=== PATIENT | male | born 1980 | race Caucasian/White ===

== ENCOUNTER → 2021-08-06 | Outpatient (CLI) | payer BC ==
[~2021-08-06] MED LIST: ERYTHROMYCIN OP1 GM EYERT
[2021-08-06 14:02] LABS: HEMOGLOBIN 15.9 gm/dl (14.0-17.5); RED BLOOD COUNT 5.32 M/UL (4.20-5.50); WHITE BLOOD COUNT 6.8 K/UL (4.5-11.0)
[2021-08-06 14:32] LABS: BUN/CREATININE RATIO 20 (0-10)
[2021-08-07 06:11] LABS: HBSAG SCREEN Negative (Negative); HCV AB <0.1 (0.0-0.9); HEP B CORE AB, TOT Negative (Negative)
[2021-08-07 07:13] LABS: HCV ANTIBODY <0.1 (0.0-0.9); HIV AB/P24 AG SCREEN Non Reactive (Non Reactive)
[2021-08-07 10:15] LABS: RHEUMATOID ARTHRITIS FACTOR <10.0 IU/mL (<14.0)
[2021-08-10 09:10] LABS: ALT (SGPT) P5P 93 IU/L (0-55); APOLIPOPROTEIN A-1 119 mg/dL (101-178); AST (SGOT) P5P 48 IU/L (0-40); BILIRUBIN, TOTAL 0.3 mg/dL (0.0-1.2); CHOLESTEROL, TOTAL 227 mg/dL (100-199); GGT 53 IU/L (0-65); GLUCOSE, SERUM 107 mg/dL (65-99); HAPTOGLOBIN 108 mg/dL (23-355); TRIGLYCERIDES 198 mg/dL (0-149)
== END ==
LOC: LAB 13:09
PROVIDERS: Family Medicine
DX: M19.90 Unspecified osteoarthritis, unspecified site (principal); F10.10 Alcohol abuse, uncomplicated; M54.50 Low back pain, unspecified
CPT/HCPCS: 36415; 80053; 80061; 82172; 82247; 82465; 82550; 82947; 82977; 83010; 83540; 83550; 84207; 84425; 84450; 84460; 84478; 84550; 85025; 85610; 85652; 86200; 86431; 86704; 86706; 86803; 87340; 87389

== ENCOUNTER 2021-09-16 10:41 | Emergency (ER) | payer BC ==
[2021-09-16 11:01] LABS: HEMOGLOBIN 15.7 gm/dl (14.0-17.5); RED BLOOD COUNT 5.11 M/UL (4.20-5.50); WHITE BLOOD COUNT 9.1 K/UL (4.5-11.0)
[2021-09-16 12:15] LABS: BUN/CREATININE RATIO 22 (0-10)
== END 2021-09-16 14:45 | disposition home or self-care (01) ==
LOC: ER1 10:41
PROVIDERS: Nurse Practitioner
DX: R07.89 Other chest pain (principal)
CPT/HCPCS: 71045; 80053; 81001; 82550; 82553; 84484; 85025; 93005; 99285